=== PATIENT | female | born 1980 | race Caucasian/White ===

== ENCOUNTER 2021-06-18 23:58 | Emergency (ER) | payer OTHER ==
[~2021-06-18 23:58] MED LIST: MOTRIN600 MG PO
[2021-06-19 01:39] LABS: BASOPHIL 0.4 % (0-2); EOSINOPHIL 0.6 % (0-5); HCT 42.5 % (37.0-47.0); HGB 13.8 g/dl (12.5-16.0); LYMPHOCYTE 24.4 % (15-48); MCH 31.5 pg (25.0-31.0); MCHC 32.5 g/dL (32.0-36.0); MONOCYTE 7.5 % (0-12); MPV 10.2 fL (6.0-9.5); NEUTROPHIL 66.8 % (41-80); NRBC 0; PLT 375 K/uL (150-400); RBC 4.38 M/uL (4.20-5.40); RDW 12.6 % (11.5-14.0); WBC 9.8 K/uL (4.0-10.5)
[2021-06-19 01:45] LABS: INR 1.06 (0.9-1.2); PROTHROMBIN TIME 13.2 SECONDS (11.8-13.4); PTT 35.6 SECONDS (24.4-34.7)
[2021-06-19 01:54] LABS: ALBUMIN 4.5 g/dL (3.4-5.0); ALKALINE PHOSHATASE 66 U/L (46-116); ALT 25 U/L (14-59); AST 14 U/L (15-37); BILIRUBIN - TOTAL 0.4 mg/dL (0.2-1.0); BUN 12 mg/dL (7-18); BUN/CREAT RATIO (CALC) 17.6 RATIO; CHLORIDE 103 mmol/L (98-107); CO2 (BICARBONATE) 27 mmol/L (21-32); CREATININE 0.68 mg/dL (0.51-0.95); GLOBULIN (CALCULATION) 3.1 g/dL; GLUCOSE 97 mg/dL (74-106); MAGNESIUM 2.3 mg/dL (1.8-2.4); POTASSIUM 3.8 mmol/L (3.5-5.1); TOTAL PROTEIN 7.6 g/dL (6.4-8.2)
== END 2021-06-19 03:59 | disposition left against medical advice (07) ==
LOC: FER 23:58
PROVIDERS: Emergency Medicine
DX: R20.2 Paresthesia of skin (principal); I10 Essential (primary) hypertension; J44.9 Chronic obstructive pulmonary disease, unspecified; F17.210 Nicotine dependence, cigarettes, uncomplicated; Z88.0 Allergy status to penicillin
CPT/HCPCS: 36415; 36600; 70450; 72125; 80053; 82803; 83735; 84484; 85025; 85610; 85730; 93005; G0480; J7030